=== PATIENT | female | born 1975 | race American Indian/Alaskan Native ===

== ENCOUNTER 2020-10-26 06:40 | Inpatient (IN) | payer SELFPAY ==
--- NOTE | 2020-10-26 08:40 | Emergency Department Report ---
ED Female HPI - General Chief complaint: Vaginal Bleeding Stated complaint: 2MTHS BLEEDING,WEAK Time Seen by Provider: 10/26/20 07:58 Source: patient Mode of arrival: Ambulatory Limitations: No Limitations - History of Present Illness Initial comments: 44-year-old female presents to the emergency room stating she has been bleeding since September 10. Patient states that she has been seen in urgent care they placed her on some medication but the bleeding returns. Patient reports that this morning she felt faint and had fallen has a headache and feels weak. Patient is 4 para 4. 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 She has no past medical history takes no medications on a daily basis and has no known drug allergies. MD Complaint: vaginal bleeding Onset/Timin -: month(s) Location: suprapubic Severity scale (0 -10): 4 Quality: cramping Consistency: intermittent Improves with: none Worsens with: none Are you Now?: No Last Menstrual Period: 09/10/20 EDC: 06/17/21 - Related Data Sexually active: Yes : 4 Para: 4 Previous Rx's Medication Instructions Recorded Last Taken Type Docusate Sodium [Colace] 100 mg PO BID PRN #30 capsule 10/27/20 Unknown Rx Ferrous Sulfate [Ferrous Sulfate 324 mg PO BID #90 tablet. 10/27/20 Unknown Rx 324 MG] medroxyPROGESTERone ACETATE 10 mg PO DAILY #30 tablet 10/27/20 Unknown Rx [Provera] Allergies Allergy/AdvReac Type Severity Reaction Status Date / Time No Known Allergies Allergy Verified 10/26/20 11:58 ED Review of Systems ROS: Stated complaint: 2MTHS BLEEDING,WEAK Other details as noted in HPI Comment: All other systems reviewed and negative ED Past Medical Hx - Past Medical History Previous Medical History?: No - Surgical History Past Surgical History?: No - Medications Home Medications: Home Medications Medication Instructions Recorded Confirmed Last Taken Type Docusate Sodium [Colace] 100 mg PO BID PRN #30 capsule 10/27/20 Unknown Rx Ferrous Sulfate [Ferrous Sulfate 324 mg PO BID #90 tablet. 10/27/20 Unknown Rx 324 MG] medroxyPROGESTERone ACETATE 10 mg PO DAILY #30 tablet 10/27/20 Unknown Rx [Provera] ED Physical Exam - General Limitations: No Limitations, Language Barrier General appearance: alert, in no apparent distress - Head Head exam: Present: atraumatic, normocephalic - Eye Eye exam: Present: normal appearance, other (Pale conjunctival) - ENT ENT exam: Present: mucous membranes moist - Neck Neck exam: Present: normal inspection, full ROM - Rectal Rectal exam: Present: heme (+) stool, bloody stool - External exam: Present: bleeding Speculum exam: Present: vaginal bleeding Bi-manual exam: Present: uterine enlargement - Extremities Exam Extremities exam: Present: normal inspection, full ROM - Back Exam Back exam: Present: normal inspection - Neurological Exam Neurological exam: Present: alert, oriented X3, normal gait - Psychiatric Psychiatric exam: Present: normal affect, normal mood - Skin Skin exam: Present: warm, dry, intact, normal color. Absent: rash ED Course Vital Signs 10/26/20 10/26/20 10/26/20 07:21 12:24 12:39 Temperature 98.5 F 98 F 98.4 F Pulse Rate 95 H 96 H 96 H Respiratory 16 16 16 Rate Blood Pressure 110/54 118/70 123/59 Blood Pressure [Left] O2 Sat by Pulse 100 100 96 Oximetry 10/26/20 10/26/20 10/26/20 13:07 13:09 14:06 Temperature 98.6 F Pulse Rate 86 88 89 Respiratory 16 16 16 Rate Blood Pressure 118/66 Blood Pressure 118/99 127/54 [Left] O2 Sat by Pulse 100 100 100 Oximetry 10/26/20 10/26/20 14:07 15:10 Temperature 98.2 F 98.4 F Pulse Rate 85 85 Respiratory 16 18 Rate Blood Pressure 127/54 Blood Pressure 125/76 [Left] O2 Sat by Pulse 100 99 Oximetry - Consultations Consultation #1: 10/26/20 09:44 Patient CBC is still pending. Lab was notified that we are still waiting. Consultation #2: 10/26/20 10:09 Spoke with my attending Dr. Trevizo he agrees that patient needs to have a blood transfusion at least 1 unit and to be admitted. ED Medical Decision Making - Lab Data Result diagrams: 10/27/20 04:03 10/26/20 09:55 - Radiology Data Radiology results: report reviewed [facility] [address] [place] [address] Cat Scan Report Signed Patient: COLLINJOYJOHN PAUL Rankin#: [id number] : 1975 Acct:[id number] Age/Sex: 44 / F ADM Date: 10/26/20 Loc: ED Attending Dr: Ordering Physician: LEAH FERRARA Date of Service: 10/26/20 Procedure(s): CT head/brain wo con Accession Number(s): [id number] cc: LEAH FERRARA CT head without contrast INDICATION : Fainted with head injury. Headache. TECHNIQUE: Axial imaging performed from the skull apex through the skull base without the use of contrast. All CT scans at this location are performed using CT dose reduction for ALARA by means of automated exposure control. COMPARISON: None FINDINGS: Parenchyma: No mass, stroke or hemorrhage. Ventricles: Ventricles are normal in size and appear symmetric. Soft tissues: Soft tissues including the orbits appear normal. Bones: No acute osseous abnormality. Sinuses: Sinuses and mastoid air cells are clear. IMPRESSION: No acute abnormality. Signer Name: Jomar Reeves MD Signed: 10/26/2020 12:23 PM Workstation Name: [id number] Transcribed By: ES Dictated By: Jomar Reeves MD Electronically Authenticated By: Jomar Reeves MD Signed Date/Time: 10/26/20 1223 DD/ 1221 TD/TT: My Comment(s) Study Comments [facility] [address] [place] [address] Ultrasound Report Signed Patient: JOHN PAUL PATTERSON R#: [id number] : 1975 Acct:[id number] Age/Sex: 44 / F ADM Date: 10/26/20 Loc: ED Attending Dr: Ordering Physician: LEAH FRERARA Date of Service: 10/26/20 Procedure(s): US pelvic complete Accession Number(s): [id number] cc: LEAH FERRARA ULTRASOUND PELVIS INDICATION: Vaginal bleeding anemic. TECHNIQUE: Transabdominal. Duplex Color Doppler used: Yes. COMPARISON: None available FINDINGS: Uterus: Present. Size: 11.5 x 5.1 x 7.8 cm. Endometrial complex: Normal measuring 1.2 cm. Mass lesions: None. Additional findings: None. Right Ovary -- Normal. Blood flow: Normal. Cyst or mass: None. Left Ovary-- Normal. Blood flow: Normal. Cyst or mass: None. Urinary Bladder: Normal. Free Fluid: None. Additional Findings: None. IMPRESSION: 1. Prominence of the endometrial stripe without discrete lesion. 2. No adnexal abnormality. Signer Name: Jomar Reeves MD Signed: 10/26/2020 11:50 AM Workstation Name: [id number] Transcribed By: JENNIFER Dictated By: Jomar Reeves MD Electronically Authenticated By: Jomar Reeves MD Signed Date/Time: 10/26/20 1150 DD/ 1149 TD/TT: - Medical Decision Making 44-year-old female presents to the emergency room stating she has been bleeding since September 10. Patient states that she has been seen in urgent care they placed her on some medication but the bleeding returns. Patient reports that this morning she felt faint and had fallen has a headache and feels weak. Patient is 4 para 4. 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 She has no past medical history takes no medications on a daily basis and has no known drug allergies. Patient denies any blood in her stool. She states that she takes B complex and tomato juice. She denies any shortness of breath. She does complain of a headache but has a history of migraines been going on for the last week. Patient states she has been taking ibuprofen and Aleve last dose was yesterday. CBC, hCG has been ordered. Type and screen INT CMP, pelvic exam, ultrasound pelvic complete. Transfuse 1 pack of red blood cells as patient has a hemoglobin of 5.1 and hematocrit of 17. Patient is guaiac positive. Pelvic exam shows copious amount of maroon blood CT of head was ordered and performed - Differential Diagnosis Menorrhagia, anemia, fibroids, GI bleed Critical care attestation.: If time is entered above; I have spent that time in minutes in the direct care of this critically ill patient, excluding procedure time. ED Disposition Clinical Impression: GI bleed, Vaginal bleeding Anemia Qualifiers: Other causes of anemia: acute posthemorrhagic Disposition: OP ADMIT IP TO THIS HOSP Is pt being admited?: Yes Does the pt Need Aspirin: No Condition: Good
[2020-10-26 09:45] LABS: Basophils % (Auto) 0.6 % (0.0-1.8); Eosinophils # (Auto) 0.1 K/mm3 (0.0-0.4); Eosinophils % (Auto) 1.1 % (0.0-4.3); Lymphocytes # (Auto) 1.2 K/mm3 (1.2-5.4); Lymphocytes % (Auto) 25.2 % (13.4-35.0); Mean Corpuscular HGB Conc 29 % (30-34); Monocytes # (Auto) 0.3 K/mm3 (0.0-0.8); Monocytes % (Auto) 7.1 % (0.0-7.3); Platelet Count 255 K/mm3 (140-440); Red Blood Count 2.83 M/mm3 (3.65-5.03); Red Cell Distribution Width 18.3 % (13.2-15.2)
[2020-10-26 09:49] LABS: Hemoglobin 5.1 gm/dl (10.1-14.3)
[2020-10-26 09:50] LABS: Hematocrit 17.5 % (30.3-42.9); Mean Corpuscular Volume 62 fl (79-97)
[2020-10-26 11:29] LABS: Albumin 4.1 g/dL (3.9-5); Blood Urea Nitrogen 8 mg/dL (7-17); Hemolysis Index 0
[2020-10-26 11:33] LABS: Bilirubin,Urine NEG (Negative); Blood,Urine LG (Negative); Color,Urine Yellow (Yellow); Mucus,Urine FEW /HPF; Urobilinogen,Urine < 2.0 mg/dL (<2.0)
[2020-10-26 11:35] LABS: RBC,Urine > 182.0 /HPF (0.0-6.0)
[2020-10-26 11:37] LABS: Alanine Aminotransferase < 5 units/L (7-56); BUN/Creatinine Ratio 16
--- NOTE | 2020-10-26 11:54 | Ultrasound Report ---
ULTRASOUND PELVIS INDICATION: Vaginal bleeding anemic. TECHNIQUE: Transabdominal. Duplex Color Doppler used: Yes. COMPARISON: None available FINDINGS: Uterus: Present. Size: 11.5 x 5.1 x 7.8 cm. Endometrial complex: Normal measuring 1.2 cm. Mass lesions: None. Additional findings: None. Right Ovary -- Normal. Blood flow: Normal. Cyst or mass: None. Left Ovary-- Normal. Blood flow: Normal. Cyst or mass: None. Urinary Bladder: Normal. Free Fluid: None. Additional Findings: None. IMPRESSION: 1. Prominence of the endometrial stripe without discrete lesion. 2. No adnexal abnormality. Signer Name: Jomar Reeves MD Signed: 10/26/2020 11:50 AM Workstation Name: [id number]
[2020-10-26] MEDS ORDERED: SODIUM CHLORIDE 0.9% 500 ML 500 ML ONE (11:57)
--- NOTE | 2020-10-26 12:28 | Cat Scan Report ---
CT head without contrast INDICATION : Fainted with head injury. Headache. TECHNIQUE: Axial imaging performed from the skull apex through the skull base without the use of con trast. All CT scans at this location are performed using CT dose reduction for ALARA by means of aut omated exposure control. COMPARISON: None FINDINGS: Parenchyma: No mass, stroke or hemorrhage. Ventricles: Ventricles are normal in size and appear symmetric. Soft tissues: Soft tissues including the orbits appear normal. Bones: No acute osseous abnormality. Sinuses: Sinuses and mastoid air cells are clear. IMPRESSION: No acute abnormality. Signer Name: Jomar Reeves MD Signed: 10/26/2020 12:23 PM Workstation Name: [id number]
[2020-10-26] MEDS ORDERED: ACETAMINOPHEN 325 MG TAB PO ONE (13:29)
[2020-10-26] MEDS ORDERED: SENNOSIDES/DOCUSATE SODIUM 8.6/50 MG TAB PO PRN (15:17)
[2020-10-26] MEDS ORDERED: diphenhydrAMINE 25 MG CAP PO PRN (15:17)
[2020-10-26] MEDS ORDERED: SIMETHICONE 80 MG CHEW TAB PO PRN (15:17)
[2020-10-26] MEDS ORDERED: PSEUDOEPHEDRINE 30 MG TAB PO PRN (15:17)
[2020-10-26] MEDS ORDERED: MAGNESIUM HYDROXIDE (MOM) ORAL LIQD UDC PO PRN (15:17)
[2020-10-26] MEDS ORDERED: IBUPROFEN 800 MG TAB PO PRN (15:17)
[2020-10-26] MEDS ORDERED: FERROUS SULFATE 325 MG TAB PO ONE (15:17)
[2020-10-26] MEDS ORDERED: LACTATED RINGERS 1,000 ML IV SCH (15:17)
[2020-10-26] MEDS ORDERED: ACETAMINOPHEN 325 MG TAB PO PRN (15:17)
[2020-10-26] MEDS ORDERED: SODIUM CHLORIDE NASAL SPRAY 44ML NS PRN (15:17)
[2020-10-26] MEDS ORDERED: DOCUSATE SODIUM 100 MG CAP PO PRN (15:17)
[2020-10-26] MEDS ORDERED: guaiFENesin DM 200/20 MG ORAL LIQD 10 ML PO PRN (15:17)
[2020-10-26] MEDS ORDERED: ALUM-MAG HYDROXIDE-SIMETHICONE 200-200-20MG/5ML ORAL LIQD 30 ML PO PRN (15:17)
[2020-10-26] MEDS: medroxyPROGESTERone ACETATE 5 MG TAB PO SCH ×2 (15:57→21:37)
[2020-10-26 18:13] LABS: Hematocrit 21.5 % (30.3-42.9); Hemoglobin 6.4 gm/dl (10.1-14.3)
[2020-10-26] MEDS ORDERED: SODIUM CHLORIDE 0.9% 500 ML 500 ML IV NR (18:57)
[2020-10-27 04:13] LABS: Hematocrit 22.9 % (30.3-42.9); Hemoglobin 7.3 gm/dl (10.1-14.3)
[2020-10-27 12:38] VITALS: BP 112/59
--- NOTE | 2020-10-27 13:57 | History and Physical Report ---
History of Present Illness Date of examination: 10/27/20 Date of admission: 10/26/20 13:47 Chief complaint: Abnormal uterine bleeding with symptomatic anemia. History of present illness: After using the language line for confirmation the patient desires her sister t o service her paraprofessional interpreter. Tip Printer Honey with the language line #[id number]. This is a 44-year-old [facility] female who presented to the emergency department after a syncopal episode. She was noted to have a hemoglobin of 5.1. Her history is significant for heavy menstrual bleeding over the past 1- 1/2 months with an increase in bleeding Monday requiring 28 pads on that 1 day. Patient denies any history of abnormal uterine bleeding until this last episode. She stated she hit her head. Patient is CT scan in the emergency department that was normal. She also had a pelvic ultrasound that was unremarkable except for a thickened endometrium. Past History Past Medical History: no pertinent history Past Surgical History: section (X3, patient states she required blood transfusions with all 3 of her C-sections.) ELECTRICIAN FRONT History: denies: abnormal PAP smear (Patient states her last Pap smear was performed 2018 in [place].) Medications and Allergies Allergies Allergy/AdvReac Type Severity Reaction Status Date / Time No Known Allergies Allergy Verified 10/26/20 11:58 Active Meds: Active Medications Acetaminophen (Acetaminophen 325 Mg Tab) 1,000 mg PO Q6H PRN PRN Reason: Pain MILD(1-3)/Fever >100.5/KENNEY Al Hydrox/Mg Hydrox/Simethicone (Alum-Mag Hydroxide-Simethicone [phone]/5ml Oral Liqd 30 Ml) 30 ml PO Q6H PRN PRN Reason: Indigestion Diphenhydramine HCl (Diphenhydramine 25 Mg Cap) 25 mg PO Q6H PRN PRN Reason: Itching Docusate Sodium (Docusate Sodium 100 Mg Cap) 100 mg PO Q12H PRN PRN Reason: Constipation Last Admin: 10/26/20 21:37 Dose: 100 mg Documented by: Guaifenesin (Guaifenesin Dm 200/20 Mg Oral Liqd 10 Ml) 10 ml PO Q6H PRN PRN Reason: Cough Lactated Ringer's (Lactated Ringers) 1,000 mls @ 125 mls/hr IV DIRECT EROS Sodium Chloride (Nacl 0.9% 500 Ml) 500 mls @ 0 mls/hr IV ONCE NR Stop: 10/27/20 18:56 Ibuprofen (Ibuprofen 800 Mg Tab) 800 mg PO Q8H PRN PRN Reason: moderate pain (4-6) Magnesium Hydroxide (Magnesium Hydroxide (Mom) Oral Liqd Udc) 30 ml PO QHS PRN PRN Reason: Laxative Effect Medroxyprogesterone Acetate (Medroxyprogesterone Acetate 5 Mg Tab) 10 mg PO TID [facility] Last Admin: 10/26/20 21:37 Dose: 10 mg Documented by: Pseudoephedrine HCl (Pseudoephedrine 30 Mg Tab) 30 mg PO Q4H PRN PRN Reason: Nasal Congestion Senna/Docusate Sodium (Sennosides/Docusate Sodium 8.6/50 Mg Tab) 2 tab PO Q12H PRN PRN Reason: Laxative Effect Simethicone (Simethicone 80 Mg Chew Tab) 80 mg PO Q6H PRN PRN Reason: Gas pain Sodium Chloride (Sodium Chloride Nasal [place] 44ml) 2 spray NS Q4H PRN PRN Reason: Congestion - Vital Signs Vital signs: Vital Signs Temp Pulse Resp BP Pulse Ox 98.5 F 95 H 16 110/54 100 10/26/20 07:21 10/26/20 07:21 10/26/20 07:21 10/26/20 07:21 10/26/20 07:21 Temp Pulse Resp BP Pulse Ox 97.7 F 77 18 112/59 100 10/27/20 12:34 10/27/20 12:34 10/27/20 12:34 10/27/20 12:34 10/27/20 12:34 No distress Results Result Diagrams: 10/27/20 04:03 10/26/20 09:55 Abnormal lab results 10/26/20 10/26/20 10/27/20 Range/Units 10:00 17:25 04:03 Hgb 6.4 L 7.3 L (10.1-14.3) gm/dl Hct 21.5 L 22.9 L (30.3-42.9) % Crossmatch See Detail All other labs normal. Ultrasound: report reviewed Assessment and Plan - Patient Problems (1) Abnormal uterine bleeding Current Visit: Yes Status: Acute (2) Anemia Current Visit: Yes Status: Acute Qualifiers: Other causes of anemia: acute posthemorrhagic Plan to address problem: Patient was admitted for blood transfusion and control of bleeding.
--- NOTE | 2020-10-27 14:03 | Discharge Summary ---
Providers - Providers Date of Admission: 10/26/20 13:47 Date of discharge: 10/27/20 Attending physician: SERGIO GAGE 10/26/20 15:17 Consult to Case Management [CONS] Routine Services Needed at Discharge: Film Editor Supervisor Notified:: [id number] Additional Physician Instructions: financial assistance Primary care physician: STRATEGIC ADVISOR Hospitalization Condition: Good Pertinent studies: CT of her head. Pelvic ultrasound. Procedures: Transfusion of 2 units packed red blood cells Hospital course: Patient was admitted and received 1 unit of packed red blood cells in the ER with a increase of her hemoglobin of 6.4. Patient remained stable however she was given additional unit of packed red blood cells with her hemoglobin now rising to 7.3. She was also started on iron tablets as well as Provera 3 times daily for the bleeding. Today the patient states she has had very little bleeding and desires discharge home she has no complaints of anemia. Disposition: DC- TO HOME OR SELFCARE Final Discharge Diagnosis (Prints w/discharge instructions): Abnormal uterine bleeding, anemia - Discharge Diagnoses (1) Abnormal uterine bleeding Status: Acute (2) Anemia Status: Acute Qualifiers: Other causes of anemia: acute posthemorrhagic Core Measure Documentation - Palliative Care Palliative Care/ Comfort Measures: Not Applicable - Core Measures Any of the following diagnoses?: none Exam - Constitutional Vitals: Temp Pulse Resp BP Pulse Ox 97.7 F 77 18 112/59 100 10/27/20 12:34 10/27/20 12:34 10/27/20 12:34 10/27/20 12:34 10/27/20 12:34 General appearance: Present: no acute distress Plan Activity: other (No sex) Weight Bearing Status: Full Weight Bearing Diet: regular Follow up with: YURI FRANCOIS MD [Primary Care Provider] - 3-5 Days SERGIO GAGE MD [Staff Physician] - 7 Days Forms: [facility] Discharge Summary Prescriptions: Docusate Sodium [Colace] 100 mg PO BID PRN #30 capsule PRN Reason: Constipation Ferrous Sulfate [Ferrous Sulfate 324 MG] 324 mg PO BID #90 tablet. RX: medroxyPROGESTERone ACETATE [Provera] 10 mg PO DAILY #30 tablet
[2020-10-27] MEDS: medroxyPROGESTERone ACETATE 5 MG TAB PO SCH ×2 (14:10→14:11)
== END 2020-10-27 14:45 | disposition home or self-care (01) | DRG 760 ==
LOC: ED 06:40 → OB 13:47
PROVIDERS: ADMIT Obstetrics & Gynecology; ATTEND Obstetrics & Gynecology
PROC: 30233N1 Transfusion of Nonautologous Red Blood Cells into Peripheral Vein, Percutaneous Approach (ICD-10-PCS; principal; 2020-10-26)
DX: N93.9 Abnormal uterine and vaginal bleeding, unspecified (principal); D62 Acute posthemorrhagic anemia; Z20.822 Contact with and (suspected) exposure to COVID-19; Z79.899 Other long term (current) drug therapy
CPT/HCPCS: 36415; 36430; 70450; 76856; 80053; 81001; 82271; 84702; 85014; 85018; 85025; 86850; 86900; 86901; 86920; 87086; G0378; J7040; P9016; U0003